=== PATIENT | female | born 1960 | race Hispanic/Latino ===

== ENCOUNTER 2021-06-19 18:35 | Inpatient (IN) | payer OTHER ==
[~2021-06-19] VITALS: Ht 154.9 cm; Wt 84.4 kg
[2021-06-19 18:37] VITALS: BP 151/76
[2021-06-19] MEDS ORDERED: ONDANSETRON 4MG INJ IVP ONE (19:30)
[2021-06-19 19:41] LABS: BASOPHILS % (AUTO) 0.6 % (0.0-5.0); EOSINOPHILS % (AUTO) 0.3 % (0.0-8.0); HEMATOCRIT 51.9 % (36-48); LYMPHOCYTES % (AUTO) 14.1 % (21.0-51.0); MEAN CORPUSCULAR HGB CONC 33.3 g/dL (32.0-36.0); MEAN CORPUSCULAR VOLUME 89.9 fL (79-99); MONOCYTES % (AUTO) 4.7 % (3.0-13.0); NEUTROPHILS % (AUTO) 80.1 % (40.0-77.0); PLATELET COUNT (AUTO) 332 K/uL (130-400); RED BLOOD CELL COUNT(AUTO) 5.77 MIL/uL (4.00-5.50); RED CELL DISTRIBUTION WIDTH 12.6 % (11.0-15.5); WHITE BLOOD COUNT (AUTO) 12.4 K/uL (4.8-10.8)
[2021-06-19 19:52] LABS: CREATININE 0.9 mg/dL (0.5-1.5); POTASSIUM 4.8 mmol/L (3.5-5.1)
[2021-06-19] MEDS ORDERED: PANTOPRAZOLE 40 MG/VIAL ONE (20:19)
[2021-06-19] MEDS ORDERED: PROCHLORPERAZINE 10MG/2ML INJ ONE (20:20)
[2021-06-19] MEDS ORDERED: PANTOPRAZOLE 40 MG/VIAL IV SCH (20:30)
[2021-06-19] MEDS ORDERED: LACTATED RINGERS 1000ML 1,000 ML IV ONE ×2 (20:30→21:00)
[2021-06-19 20:51] LABS: INR 1.08 (0.85-1.15); PROTHROMBIN TIME 11.7 SEC (9.6-11.6)
[2021-06-19 20:52] LABS: PARTIAL THROMBOPLASTIN TIME 27.8 SEC (26.3-35.5)
[2021-06-19 21:00] LABS: ALANINE AMINOTRANSFERASE 43 U/L (12-78); ALBUMIN 4.3 g/dL (3.5-5.0); ASPARTATE AMINOTRANSFERASE 58 U/L (10-37); BILIRUBIN,TOTAL 0.5 mg/dL (0.2-1.0)
[2021-06-19] MEDS: PANTOPRAZOLE 40MG INJ 80 MG in 0.9%NACL 100ML 100 ML IV SCH (21:00)
[2021-06-19] MEDS ORDERED: PANTOPRAZOLE 40 MG/VIAL IVP SCH (21:00)
[2021-06-19] MEDS ORDERED: PROCHLORPERAZINE 10MG/2ML INJ IV ONE ×2 (21:00)
[2021-06-19] MEDS ORDERED: IOHEXOL-350 75 ML VIAL IV ONE (21:08)
[2021-06-19 21:09] LABS: BILIRUBIN,DIRECT < 0.1 mg/dL (0.0-0.3); CRP QUANTITATIVE < 2.00 mg/L (0.00-9.0)
[2021-06-20 02:18] LABS: HEMATOCRIT 41.1 % (36-48); MEAN CORPUSCULAR HEMOGLOBIN 30.4 pg (27.0-33.0); MEAN CORPUSCULAR HGB CONC 33.8 g/dL (32.0-36.0); MEAN CORPUSCULAR VOLUME 89.9 fL (79-99); RED BLOOD CELL COUNT(AUTO) 4.57 MIL/uL (4.00-5.50); RED CELL DISTRIBUTION WIDTH 12.7 % (11.0-15.5); WHITE BLOOD COUNT (AUTO) 11.6 K/uL (4.8-10.8)
[2021-06-20 03:50] VITALS: BP 111/57
[2021-06-20] MEDS ORDERED: 0.9%NACL 1000ML 1,000 ML IV SCH (04:30)
[2021-06-20] MEDS ORDERED: ONDANSETRON 4MG INJ IV PRN (04:30)
[2021-06-20] MEDS ORDERED: NITROGLYCERIN 0.4 MG SL TAB SL PRN (04:30)
[2021-06-20 05:42] LABS: HEMOGLOBIN A1C 6.7 % (4.0-6.0)
[2021-06-20 06:03] VITALS: BP 125/68
[2021-06-20 06:28] LABS: HEMATOCRIT 45.9 % (36-48); MEAN CORPUSCULAR HEMOGLOBIN 29.5 pg (27.0-33.0); MEAN CORPUSCULAR HGB CONC 32.5 g/dL (32.0-36.0); MEAN CORPUSCULAR VOLUME 90.9 fL (79-99); RED BLOOD CELL COUNT(AUTO) 5.05 MIL/uL (4.00-5.50); RED CELL DISTRIBUTION WIDTH 12.9 % (11.0-15.5); WHITE BLOOD COUNT (AUTO) 9.1 K/uL (4.8-10.8)
[2021-06-20] MEDS: PANTOPRAZOLE 40MG INJ 80 MG in 0.9%NACL 100ML 100 ML IV SCH (07:00)
[2021-06-20] MEDS ORDERED: PANT40TA54 PO (08:38)
[2021-06-20] MEDS ORDERED: METR-172 PO (08:38)
[2021-06-20] MEDS ORDERED: BISM525O75 PO (08:38)
[2021-06-20] MEDS ORDERED: CLARITHROMYCIN 500 MG TABLET PO SCH (09:00)
[2021-06-20] MEDS ORDERED: AMOXICILLIN 500 MG CAPSULE PO SCH (09:00)
[2021-06-20 11:49] VITALS: BP 123/60
== END 2021-06-20 09:45 | disposition home or self-care (01) | DRG 392 ==
LOC: EDH 18:35 → EDHIP 06-20 04:17
PROVIDERS: ADMIT Internal Medicine; ATTEND Internal Medicine
DX: K52.9 Noninfective gastroenteritis and colitis, unspecified (principal); I10 Essential (primary) hypertension; E11.40 Type 2 diabetes mellitus with diabetic neuropathy, unspecified; E78.5 Hyperlipidemia, unspecified; F17.200 Nicotine dependence, unspecified, uncomplicated; B96.81 Helicobacter pylori [H. pylori] as the cause of diseases classified elsewhere; K43.9 Ventral hernia without obstruction or gangrene; E86.0 Dehydration; Z96.642 Presence of left artificial hip joint; Z20.822 Contact with and (suspected) exposure to COVID-19; Z56.0 Unemployment, unspecified; Z79.4 Long term (current) use of insulin; Z90.710 Acquired absence of both cervix and uterus; Z90.49 Acquired absence of other specified parts of digestive tract
CPT/HCPCS: 36415; 71045; 74177; 80048; 80076; 83036; 83735; 85025; 85027; 85610; 85730; 86140; 86677; 86850; 86900; 86901; 87426; 93005; 99291; C9113; G0378; J0780; J2405; J7030; J7120; Q9967